=== PATIENT | female | born 1995 | race Caucasian/White ===

== ENCOUNTER 2020-04-05 13:39 | Emergency (ER) | payer OTHER ==
[~2020-04-05] VITALS: Ht 152.4 cm; Wt 47.6 kg
[2020-04-05] MEDS ORDERED: PEPCID AC20 MG PO (20:45)
[2020-04-05] MEDS ORDERED: CIPRO500 MG PO (20:45)
[2020-04-05] MEDS ORDERED: CARAFATE1 GM PO (20:45)
== END 2020-04-05 21:11 | disposition home or self-care (01) ==
LOC: ER 13:39
DX: K29.70 Gastritis, unspecified, without bleeding (principal); Z03.818 Encounter for observation for suspected exposure to other biological agents ruled out